=== PATIENT | male | born 1975 | race Caucasian/White ===

== ENCOUNTER 2017-05-01 13:24 | Emergency (ER) | payer OTHER, BC ==
[~2017-05-01] VITALS: Ht 177.8 cm; Wt 95.9 kg
[2017-05-01 13:24] VITALS: BP 122/77
[2017-05-01] MEDS ORDERED: PRAZ1CAP (13:42)
[2017-05-01] MEDS ORDERED: BUPR15TA PO (13:42)
[2017-05-01] MEDS ORDERED: TRAZ50TA11 (13:42)
[2017-05-01] MEDS ORDERED: DRON10CA4 (13:42)
--- NOTE | 2017-05-01 17:26 | ED PDOC ---
Post-Departure Follow-Up I WAS ASKED TO SEE THIS PT BY NURSING STAFF. WAS WALKING TO SEE THE PT AND WAS INFORMED THAT HE STORMED OUT AND WAS SAYING THAT HE WAS NOT GOING TO WAIT ANY LONGER TO BE SEEN. THIS PT WAS NOT SEEN BY THIS PATHOLOGY SPECIALIST. HUGO OFNSECA PA-C May 01, 2017 17:26
== END 2017-05-01 17:38 | disposition left against medical advice (07) ==
LOC: M ED 13:24
DX: M54.9 Dorsalgia, unspecified (principal); Z53.21 Procedure and treatment not carried out due to patient leaving prior to being seen by health care provider